=== PATIENT | male | born 1950 | race Caucasian/White ===

== ENCOUNTER → 2018-09-03 10:02 | Outpatient (CLI) | payer MEDICARE, OTHER, SELFPAY ==
[2018-09-03 11:08] LABS: Add Manual Diff / Slide Review NO; Basophils Absolute Auto 100 /uL (0-100); Basophils Percent Auto 0.9 % (0-2); Eosinophils Absolute Auto 200 /uL (0-450); Eosinophils Percent Auto 3.3 % (2-4); Hematocrit 40.7 % (41-53); Hemoglobin 13.7 g/dL (13.5-17.5); Lymphocytes Absolute Auto 1800 /uL (1100-4500); Lymphocytes Percent Auto 27.2 % (25-40); Mean Corpuscular HGB Conc 33.8 % (30-36); Mean Corpuscular Hemoglobin 31.1 PG (26-34); Mean Corpuscular Volume 92.1 fL (80-100); Monocytes Absolute Auto 800 /uL (0-900); Monocytes Percent Auto 11.3 % (3-14); Neutrophils Absolute Auto 3900 /uL (1500-7000); Neutrophils Percent Auto 57.3 % (50-75); Platelet Count 271 X10^3/uL (150-400); Red Blood Cell Count 4.42 X10^6/uL (4.5-5.9); Red Cell Distribution Width 12.2 % (11.6-14.8); White Blood Cell Count 6.8 X10^3/uL (4.5-11.0)
[2018-09-03 11:30] LABS: Alanine Aminotransferase 32 IU/L (21-72); Albumin 4.5 g/dL (3.5-5.0); Albumin Globulin Ratio 1.9 (1.0-2.8); Alkaline Phosphatase 59 U/L (38-126); Aspartate Aminotransferase 33 IU/L (17-59); BUN Creatinine Ratio 22.5 (6-22); Bilirubin Total 1.4 mg/dL (0.2-1.3); Blood Urea Nitrogen 18 mg/dL (9-20); Calcium 9.4 mg/dL (8.4-10.2); Carbon Dioxide 28 mmol/L (22-32); Chloride 98 mmol/L (98-107); Cholesterol 148 mg/dL (140-199); Estimated Glomerular Filt Rate > 60.0 mL/min (>60); Globulin 2.4 g/dL (1.7-4.1); Glucose 104 mg/dL (80-110); HDL Cholesterol 66 mg/dL (40-60); HEMOLYSIS < 15 (0-50); LDL Cholesterol Calculated 66 mg/dL (<100); Potassium 3.9 mmol/L (3.4-5.1); Sodium 136 mmol/L (137-145); Total Protein 6.9 g/dL (6.3-8.2); Triglycerides 78 mg/dL (35-150)
[2018-09-03 11:57] LABS: Prostate Specific Antigen Scrn 0.859 ng/mL (0.1-4.0); TSH w/ Reflex to FT4 1.63 uIU/mL (0.47-4.68)
== END ==
PROVIDERS: PCP Family Medicine; Visit Provider Family Medicine
DX: E78.5 Hyperlipidemia, unspecified (principal); I10 Essential (primary) hypertension; N40.0 Benign prostatic hyperplasia without lower urinary tract symptoms; Z12.5 Encounter for screening for malignant neoplasm of prostate
CPT/HCPCS: 36415; 80053; 80061; 84443; 85025; G0103

== ENCOUNTER → 2019-09-08 09:35 | Outpatient (CLI) | payer MEDICARE, OTHER, SELFPAY ==
[2019-09-08 10:45] LABS: Add Manual Diff / Slide Review NO; Basophils Absolute Auto 100 /uL (0-100); Eosinophils Absolute Auto 200 /uL (0-450); Eosinophils Percent Auto 2.9 % (2-4); Hematocrit 39.5 % (41-53); Hemoglobin 13.7 g/dL (13.5-17.5); Lymphocytes Absolute Auto 1500 /uL (1100-4500); Lymphocytes Percent Auto 27.3 % (25-40); Mean Corpuscular HGB Conc 34.7 % (30-36); Mean Corpuscular Volume 92.1 fL (80-100); Monocytes Absolute Auto 600 /uL (0-900); Monocytes Percent Auto 10.2 % (3-14); Neutrophils Absolute Auto 3300 /uL (1500-7000); Neutrophils Percent Auto 58.6 % (50-75); Platelet Count 269 X10^3/uL (150-400); Red Blood Cell Count 4.29 X10^6/uL (4.5-5.9); Red Cell Distribution Width 12.7 % (11.6-14.8); White Blood Cell Count 5.6 X10^3/uL (4.5-11.0)
[2019-09-08 10:54] LABS: Alanine Aminotransferase 29 IU/L (<50); Albumin 4.9 g/dL (3.5-5.0); Albumin Globulin Ratio 1.8 (1.0-2.8); Alkaline Phosphatase 56 U/L (38-126); Aspartate Aminotransferase 35 IU/L (17-59); BUN Creatinine Ratio 25.3 (6-22); Bilirubin Total 1.2 mg/dL (0.2-1.3); Blood Urea Nitrogen 20 mg/dL (9-20); Calcium 10.2 mg/dL (8.4-10.2); Carbon Dioxide 29 mmol/L (22-32); Chloride 99 mmol/L (98-107); Creatine Kinase 242 U/L (55-170); Estimated Glomerular Filt Rate > 60.0 mL/min (>60); Globulin 2.8 g/dL (1.7-4.1); Glucose 107 mg/dL (80-110); HEMOLYSIS < 15 (0-50); Potassium 4.4 mmol/L (3.4-5.1); Sodium 137 mmol/L (137-145); Total Protein 7.7 g/dL (6.3-8.2)
[2019-09-08 10:56] LABS: C-Reactive Protein Quant < 0.5 mg/dL (<1.0)
[2019-09-08 11:19] LABS: Prostate Specific Antigen 0.587 ng/mL (0.10-4.00)
[2019-09-08 11:21] LABS: TSH w/ Reflex to FT4 1.96 uIU/mL (0.47-4.68)
[2019-09-08 17:12] LABS: Hep C Virus Ab w/Reflex Quant NEGATIVE s/c (NEGATIVE)
== END ==
PROVIDERS: PCP Family Medicine; Referring Provider Family Medicine; Visit Provider Family Medicine
DX: Z11.59 Encounter for screening for other viral diseases (principal); E78.5 Hyperlipidemia, unspecified; E80.4 Gilbert syndrome; I10 Essential (primary) hypertension; N40.0 Benign prostatic hyperplasia without lower urinary tract symptoms
CPT/HCPCS: 36415; 80053; 82550; 84153; 84443; 85025; 86140; 86803

== ENCOUNTER → 2020-09-12 09:34 | Outpatient (CLI) | payer MEDICARE, OTHER, SELFPAY ==
[2020-09-12 10:13] LABS: Add Manual Diff / Slide Review NO; Basophils Absolute Auto 100 /uL (0-100); Basophils Percent Auto 0.9 % (0-2); Eosinophils Absolute Auto 100 /uL (0-450); Eosinophils Percent Auto 2.2 % (2-4); Hematocrit 38.2 % (41-53); Lymphocytes Absolute Auto 1700 /uL (1100-4500); Lymphocytes Percent Auto 26.8 % (25-40); Mean Corpuscular HGB Conc 34.1 % (30-36); Mean Corpuscular Hemoglobin 31.3 PG (26-34); Mean Corpuscular Volume 91.8 fL (80-100); Monocytes Absolute Auto 600 /uL (0-900); Monocytes Percent Auto 9.9 % (3-14); Neutrophils Absolute Auto 3700 /uL (1500-7000); Neutrophils Percent Auto 60.2 % (50-75); Platelet Count 238 X10^3/uL (150-400); Red Blood Cell Count 4.16 X10^6/uL (4.5-5.9); Red Cell Distribution Width 12.5 % (11.6-14.8); White Blood Cell Count 6.2 X10^3/uL (4.5-11.0)
[2020-09-12 10:43] LABS: Alanine Aminotransferase 31 IU/L (<50); Albumin 4.4 g/dL (3.5-5.0); Alkaline Phosphatase 50 U/L (38-126); Aspartate Aminotransferase 31 IU/L (17-59); BUN Creatinine Ratio 28.6 (6-22); Bilirubin Total 1.3 mg/dL (0.2-1.3); Blood Urea Nitrogen 20 mg/dL (9-20); Calcium 9.9 mg/dL (8.4-10.2); Carbon Dioxide 28 mmol/L (22-32); Chloride 100 mmol/L (98-107); Cholesterol 151 mg/dL (140-199); Estimated Glomerular Filt Rate > 60.0 mL/min (>60); Globulin 2.2 g/dL (1.7-4.1); Glucose 112 mg/dL (80-110); HDL Cholesterol 86 mg/dL (40-60); HEMOLYSIS < 15 (0-50); LDL Cholesterol Calculated 52 mg/dL (<100); Potassium 4.1 mmol/L (3.4-5.1); Sodium 135 mmol/L (137-145); Total Protein 6.6 g/dL (6.3-8.2); Triglycerides 65 mg/dL (35-150)
[2020-09-12 16:23] LABS: Prostate Specific Antigen Scrn 0.448 ng/mL (0.1-4.0)
== END ==
PROVIDERS: PCP Family Medicine; Referring Provider Family Medicine; Visit Provider Family Medicine
DX: E78.5 Hyperlipidemia, unspecified (principal); Z12.5 Encounter for screening for malignant neoplasm of prostate; I10 Essential (primary) hypertension; N40.0 Benign prostatic hyperplasia without lower urinary tract symptoms
CPT/HCPCS: 36415; 80053; 80061; 84443; 85025; G0103

== ENCOUNTER → 2021-09-23 10:34 | Outpatient (CLI) | payer MEDICARE, OTHER, SELFPAY ==
[2021-09-23 11:38] LABS: Add Manual Diff / Slide Review NO; Basophils Absolute Auto 0 /uL (0-100); Basophils Percent Auto 0.7 % (0-2); Eosinophils Absolute Auto 200 /uL (0-450); Eosinophils Percent Auto 3.2 % (2-4); Hematocrit 37.1 % (41-53); Hemoglobin 12.9 g/dL (13.5-17.5); Lymphocytes Absolute Auto 1300 /uL (1100-4500); Lymphocytes Percent Auto 23.5 % (25-40); Mean Corpuscular HGB Conc 34.6 % (30-36); Mean Corpuscular Hemoglobin 31.6 PG (26-34); Mean Corpuscular Volume 91.2 fL (80-100); Monocytes Absolute Auto 600 /uL (0-900); Monocytes Percent Auto 10.5 % (3-14); Neutrophils Absolute Auto 3400 /uL (1500-7000); Neutrophils Percent Auto 62.1 % (50-75); Platelet Count 243 X10^3/uL (150-400); Red Blood Cell Count 4.07 X10^6/uL (4.5-5.9); Red Cell Distribution Width 12.5 % (11.6-14.8); White Blood Cell Count 5.5 X10^3/uL (4.5-11.0)
[2021-09-23 12:19] LABS: Alanine Aminotransferase 24 IU/L (<50); Albumin 4.6 g/dL (3.5-5.0); Albumin Globulin Ratio 1.8 (1.0-2.8); Alkaline Phosphatase 59 U/L (38-126); Aspartate Aminotransferase 31 IU/L (17-59); BUN Creatinine Ratio 22.4 (6-22); Bilirubin Total 1.5 mg/dL (0.2-1.3); Blood Urea Nitrogen 19 mg/dL (9-20); Calcium 9.5 mg/dL (8.4-10.2); Carbon Dioxide 29 mmol/L (22-32); Chloride 99 mmol/L (98-107); Cholesterol 139 mg/dL (140-199); Estimated Glomerular Filt Rate > 60 mL/min (>60); Globulin 2.5 g/dL (1.7-4.1); Glucose 107 mg/dL (80-110); HDL Cholesterol 67 mg/dL (40-60); HEMOLYSIS < 15 (0-50); LDL Cholesterol Calculated 59 mg/dL (<100); Potassium 4.1 mmol/L (3.4-5.1); Sodium 134 mmol/L (137-145); Total Protein 7.1 g/dL (6.3-8.2); Triglycerides 66 mg/dL (35-150)
[2021-09-23 12:42] LABS: TSH w/ Reflex to FT4 1.34 uIU/mL (0.47-4.68)
[2021-09-23 13:13] LABS: Vitamin D 25 Hydroxy (D3) 70.6 ng/mL (30.0-100.0)
[2021-09-23 15:44] LABS: HEMOLYSIS < 15 (0-50); Iron 140 ug/dL (49-181)
[2021-09-23 15:54] LABS: Percent Iron Saturation 45 % (20-50); Total Iron Binding Capacity 309 ug/dL (261-462); Transferrin 216 mg/dL (206-381)
[2021-09-23 16:20] LABS: Ferritin 125 ng/mL (18-464)
[2021-09-23 16:51] LABS: Folate > 20.0 ng/mL (2.76-20.0); Vitamin B12 813 pg/mL (239-931)
== END ==
PROVIDERS: PCP Family Medicine; Referring Provider Family Medicine; Visit Provider Family Medicine
DX: E78.5 Hyperlipidemia, unspecified (principal); R73.01 Impaired fasting glucose; D64.9 Anemia, unspecified; I10 Essential (primary) hypertension; N40.0 Benign prostatic hyperplasia without lower urinary tract symptoms
CPT/HCPCS: 36415; 80053; 80061; 82306; 82607; 82728; 82746; 83540; 83550; 84443; 85025

== ENCOUNTER 2021-12-03 19:25 | Emergency (ER) | payer MEDICARE, OTHER, SELFPAY ==
[2021-12-03 19:30] VITALS: BP 149/68; PULSE 65; RESP 20; TEMP 36.3; O2SAT 100
--- NOTE | 2021-12-03 19:57 | ED_ITS ---
HPI - Wound/Laceration General Chief Complaint: Wound/Laceration Stated Complaint: head injury s/p fall Time Seen by Provider: 12/03/21 19:32 Source: patient Mode of arrival: Ambulatory History of Present Illness HPI narrative: 71-year-old male nonsmoker with history of hypertension and hyperlipidemia presents at the request of the walk-in clinic for evaluation of a head laceration suffered just prior to arrival. He states he was a few steps up on a ladder when he lost his balance and started to fall forward and struck his head on an object in his workspace. He has full recall of the event denies any loss of consciousness, nausea, vomiting or other neurologic symptoms such as blurred vision, trouble speech or trouble with gait. He was seen at the walk-in clinic initially and had his tetanus updated but given the time of day and the complexity of the repair he was diverted to the emergency department for definitive care. He does not take blood thinners and denies other injury. Related Data Previous Rx's Medication Instructions Recorded amlodipine 5 mg tablet (Norvasc) 5 mg PO BID #180 tabs 09/26/21 atorvastatin 40 mg tablet (Lipitor) 40 mg PO HS #90 tabs 09/26/21 hydrochlorothiazide 50 mg tablet 50 mg PO BID #180 tabs 09/26/21 lisinopril 20 mg tablet 20 mg PO BID #180 tabs 09/26/21 tamsulosin 0.4 mg capsule (Flomax) 0.4 mg PO DAILY #90 caps 09/26/21 Allergies Allergy/AdvReac Type Severity Reaction Status Date / Time No Known Drug Allergies Allergy Verified 12/03/21 18:41 Review of Systems Review of Systems Narrative: GENERAL: Denies chills, fatigue, malaise, fever, sweats. HEENT: Denies sinus pain, ear pain, sore throat, difficulty swallowing, dizziness. RESPIRATORY: Denies dyspnea, cough, wheezing, hemoptysis, sputum. CARDIOVASCULAR: Denies chest pain, palpitations, orthopnea, edema, GASTROINTESTINAL: Denies nausea, vomiting, abdominal pain, diarrhea, constipation, melena. : Denies dysuria, frequency, incontinence, hematuria, urinary retention. MUSCULOSKELETAL: denies weakness, joint pain, or bony pain SKIN: See HPI NEUROLOGIC: Denies weakness, headache, numbness, change in speech, confusion, seizures, incoordination. PSYCHIATRIC: No concerning psychosocial issues. 12 point review of systems is negative except for those stated above Patient History Medical History Abnormal chest x-ray (~1987) Chicken pox Hyperlipidemia Hypertension Sarcoidosis (~1987) Shoulder pain Vision disorder Surgical History Anesthesia Status post biopsy Family History Father Heart disease Hypertension Stroke Mother Cancer Diabetes mellitus Dementia Social History marital status: household members: spouse lives independently: Yes pets and animals: Yes (Dog) education level: other occupational status: employed [employer]: [employer] seatbelt use: always helmet use: Yes water heater temp set < 120 deg: Yes working smoke detector in home: Yes fire extinguisher in home: Yes carbon monox detector in home: Yes Smoking Status: Never smoker alcohol intake: current substance use type: does not use well-balanced diet: daily or most days daily servings fruits/ve-4 caffeine: Yes (1-3 caffeine drinks per week) eating out: 1-3 times/week frequency: 1-2 times per week duration: 15-30 minutes/day Smoking Status: Never smoker alcohol intake frequency: 0-2 drinks per day Exam Narrative Exam Narrative: GENERAL: [71] year old patient appears stated age. Well-developed patient, in mild distress. GCS 15 HEAD: 7cm deep, vertically oriented laceration extending from the eyebrow vertically on left side of forehead. There is minimal active bleeding, some of the frontalis muscle appears to be involved. It is clean and no foreign body is noted, no defect in the calvarium is noted EYES: Pupils equal round and reactive. No hyphema Extraocular motions intact. No scleral icterus. No injection or drainage. ENT: Nose without bleeding, purulent drainage. No nasal septal hematoma Throat without erythema, tonsillar hypertrophy or exudate. Airway patent. NECK: Trachea midline. Non tender CARDIOVASCULAR: Regular rate and rhythm without murmurs, gallops, or rubs. RESPIRATORY: Clear to auscultation. Breath sounds equal bilaterally. No wheezes, rales, or rhonchi. GASTROINTESTINAL: Abdomen soft, non-tender, nondistended. EXTREMITIES: No edema or joint tenderness. BACK: Nontender without deformity or crepitance. No flank tenderness. NEURO: AOx3. SKIN: No rash or erythema of visible areas Initial Vital Signs Initial Vital Signs: Vital Signs Temperature 97.3 F L 12/03/21 19:30 Pulse Rate 65 12/03/21 19:30 Respiratory Rate 20 12/03/21 19:30 Blood Pressure 149/68 H 12/03/21 19:30 Pulse Oximetry 100 12/03/21 19:30 Oxygen Delivery Method 12/03/21 19:30 Procedures Laceration Repair Laceration 1: Site: face Side (If applicable): left Size (cm): 7 Description: linear, irregular and clean Depth: involves muscle layer Local Anesthetic: lidocaine 1% and with epi Amount of anesthesia used (mL): 3 Pre-repair: wound explored and cleansed with chlorhexadine Skin layer closed with: nylon Skin layer suture size: 6-0 Number of sutures: 8 Technique: simple, interrupted Subcutaneous layer closed with: vicryl Subcutaneous layer suture size: 5-0 Number of sutures: 3 Technique: simple, interrupted Course Orders Ordered: Discontinued Medications Lidocaine/Epinephrine (Lidocaine 1% W/Epi) 1 ml SUBCUT NOW ONE Stop: 12/03/21 20:06 Last Admin: 12/03/21 20:29 Dose: 1 ml Documented By: CTS Vital Signs Vital signs: Vital Signs - 8 hr 12/03/21 19:30 Temperature 97.3 F L Pulse Rate 65 Respiratory Rate 20 Blood Pressure 149/68 H Pulse Oximetry 100 Oxygen Delivery Method Room Air Discharge Plan Departure Patient Disposition: Home Clinical Impression: Complex laceration of face Instructions: DI for Laceration Repair Activity Restrictions/Additional Instructions: *You have been diagnosed with [deep facial laceration ] *What to do: *Please continue to take your regular medications as directed. * Please keep the wound clean and dry to the best of your ability. Please monitor for signs of infection such as redness to the skin or increasing pain. Have the sutures/flavia removed by your doctor in about 7 days. If you are unable to get into your doctor, we would be happy to remove the sutures/flavia in that same timeframe. *If you do not have a primary care provider please contact the [facility] Resource line at [phone]. They will ask some questions about your medical h istory and help get you set up with a doctor in the community. *Return to Emergency Department if you should have any new, worsening or concerning symptoms, such as [fever greater than 101 F, shaking chills, worsening pain, persistent vomiting or other bothersome symptoms] Prescriptions: No Action amlodipine [Norvasc] 5 mg tablet 5 mg PO BID Qty: 180 3RF atorvastatin [Lipitor] 40 mg tablet 40 mg PO HS Qty: 90 3RF hydrochlorothiazide 50 mg tablet 50 mg PO BID Qty: 180 3RF lisinopril 20 mg tablet 20 mg PO BID Qty: 180 3RF tamsulosin [Flomax] 0.4 mg capsule 0.4 mg PO DAILY Qty: 90 3RF Rx Instructions: administer 30 minutes after same meal each day; swallow whole with liquid; do not crush/chew/dissolve/open Referrals: Bird Fitzpatrick MD [Primary Care Provider] - Visit Report Forms: Patient Portal/API
[2021-12-03] MEDS: LIDOCAINE 1% W/EPI 1 ML SUBCUT (20:29)
== END 2021-12-03 20:42 | disposition home or self-care (01) ==
PROVIDERS: Emergency Provider Emergency Medicine; PCP Family Medicine
DX: S01.81XA Laceration without foreign body of other part of head, initial encounter (principal); W19.XXXA Unspecified fall, initial encounter
CPT/HCPCS: 13132; 99281; 99283

== ENCOUNTER → 2022-06-19 08:38 | Outpatient (CLI) | payer MEDICARE, OTHER, SELFPAY ==
--- NOTE | 2022-06-19 08:44 | DI.MRI.S_ITS ---
PROCEDURE: MR ANKLE LT WO CON INDICATIONS: Left ankle deformity and pain TECHNIQUE: Noncontrast sagittal T1 spin echo and T2 fast spin echo with fat saturation, axial proton density fast spin echo and T2 fast spin echo with fat saturation, coronal T1 spin echo and T2 fast spin echo with fat saturation through the ankle/hindfoot. COMPARISON: None. FINDINGS: Image quality: Excellent. Bones and joints: Mild ankle soft tissue swelling and edema is seen. Moderate midfoot and hindfoot joint osteoarthritic changes are noted with joint space narrowing, subchondral sclerosis and small marginal osteophyte formation most notably involving subtalar joint and talonavicular joint. No osteochondral injuries of talar dome. Small tibiotalar and subtalar joint effusion is seen, no gross loose bodies. Medial structures: The posterior tibialis is markedly thickened with intrasubstance T2 hyperintense signal at the level of mid to distal talus and talonavicular joint. The flexor digitorum longus, and flexor hallucis longus tendons are intact. Small amount of fluid distending flexor tendon sheath is seen. The posterior tibial neurovascular bundle appears normal within the tarsal tunnel, without extrinsic mass effect. The deltoid ligament and spring ligament are thickened. Lateral structures: The anterior talofibular, calcaneofibular, and posterior talofibular ligaments appear mildly thickened with intrasubstance T2 hyperintense signal.. More superiorly, the anterior and posterior tibiofibular ligaments appear intact, as is the intermalleolar ligament. The tibiofibular syndesmosis is normal in width at 2 mm or less. The peroneus longus and brevis tendons demonstrate normal location and morphology. Adjacent bony peroneal tubercle and retrotrochlear prominence are normal in size. The sinus tarsi demonstrates normal fatty signal, without edema, fibrosis, or cyst formation. Visualized sinus tarsi components (cervical ligament, interosseous talocalcaneal ligament, roots of the inferior extensor retinaculum) appear normal. The calcaneonavicular and calcaneocuboid components of the bifurcate ligament appear intact. The dorsal calcaneocuboid ligament appears intact. Anterior structures: The tibialis anterior, extensor hallucis longus, and extensor digitorum longus tendons appear intact. The dorsal talonavicular ligament appears intact. Posterior and plantar structures: Achilles tendon is intact. Medial and lateral bands of the plantar fascia are of normal thickness. No abductor digiti quinti muscle atrophy to suggest Weir neuropathy. IMPRESSION: 1. Moderate midfoot and hindfoot joint osteoarthritis. No fracture or dislocation. No osteochondral injuries of talar dome. Small amount of joint effusion, no gross loose bodies. Diffuse ankle soft tissue edema and swelling. 2. Tendinosis and moderate grade intrasubstance partial-thickness tear involving posterior tibialis tendon at the level of mid to distal talus extending to talonavicular joint. Low-grade tenosynovitis also seen involving flexor tendons. 3. Low to moderate grade medial ankle ligament sprain. Low-grade sprain involving anterior and posterior talofibular ligaments and calcaneofibular ligament. Dictated by: Daniel Pena M.D. on 06/19/2022 at 16:05 Approved by: Daniel Pena M.D. on 06/19/2022 at 16:10
--- NOTE | 2022-06-19 08:44 | DI.RAD.S_ITS ---
PROCEDURE: XR ANKLE LT MIN 3V INDICATIONS: Left ankle deformity and pain TECHNIQUE: 3 views of the ankle were acquired. COMPARISON: [facility], MR, MR ANKLE LT WO CON, 06/19/2022, 9:09. FINDINGS: Bones: No fractures identified. No dislocations. [id number] degenerative change in the midfoot. Ankle mortise is normally aligned. No suspicious bony lesions. Soft tissues: No tibiotalar joint effusion. Achilles tendon appears normal. IMPRESSION: No fracture is identified. Please see separately dictated same day MRI. Dictated by: Roman Oropeza M.D. on 06/19/2022 at 13:27 Approved by: Roman Oropeza M.D. on 06/19/2022 at 13:30
[2022-06-20 14:21] LABS: Fecal Immunochemical Test Negative (Negative)
== END ==
PROVIDERS: PCP Family Medicine; Referring Provider Physician Assistant; Visit Provider Physician Assistant
DX: S93.492A Sprain of other ligament of left ankle, initial encounter (principal); S93.412A Sprain of calcaneofibular ligament of left ankle, initial encounter; S96.812A Strain of other specified muscles and tendons at ankle and foot level, left foot, initial encounter; M19.072 Primary osteoarthritis, left ankle and foot; M65.872 Other synovitis and tenosynovitis, left ankle and foot; M25.572 Pain in left ankle and joints of left foot; M21.962 Unspecified acquired deformity of left lower leg; R26.9 Unspecified abnormalities of gait and mobility; G89.29 Other chronic pain; Z12.11 Encounter for screening for malignant neoplasm of colon
CPT/HCPCS: 73610; 73721; 82274

== ENCOUNTER → 2022-09-25 09:11 | Outpatient (CLI) | payer MEDICARE, OTHER, SELFPAY ==
[2022-09-25 10:20] LABS: HEMOLYSIS < 15 (0-50); Iron 139 ug/dL (49-181)
[2022-09-25 10:22] LABS: Alanine Aminotransferase 23 IU/L (<50); Albumin 4.3 g/dL (3.5-5.0); Albumin Globulin Ratio 1.7 (1.0-2.8); Alkaline Phosphatase 49 U/L (38-126); Aspartate Aminotransferase 22 IU/L (17-59); BUN Creatinine Ratio 24.4 (6-22); Bilirubin Total 1.2 mg/dL (0.2-1.3); Blood Urea Nitrogen 19 mg/dL (9-20); Calcium 9.4 mg/dL (8.4-10.2); Carbon Dioxide 30 mmol/L (22-32); Chloride 99 mmol/L (98-107); Cholesterol 154 mg/dL (140-199); Estimated Glomerular Filt Rate > 60 mL/min (>60); Globulin 2.6 g/dL (1.7-4.1); Glucose 113 mg/dL (80-110); HDL Cholesterol 64 mg/dL (40-60); HEMOLYSIS < 15 (0-50); LDL Cholesterol Calculated 79 mg/dL (<100); Potassium 4.3 mmol/L (3.4-5.1); Sodium 136 mmol/L (137-145); Total Protein 6.9 g/dL (6.3-8.2); Triglycerides 56 mg/dL (35-150)
[2022-09-25 10:33] LABS: Percent Iron Saturation 48 % (20-50); Total Iron Binding Capacity 292 ug/dL (261-462); Transferrin 215 mg/dL (206-381)
[2022-09-25 10:52] LABS: Prostate Specific Antigen Scrn 0.512 ng/mL (0.1-4.0)
[2022-09-25 10:54] LABS: TSH w/ Reflex to FT4 1.57 uIU/mL (0.47-4.68)
[2022-09-25 10:56] LABS: Ferritin 140 ng/mL (18-464); Testosterone 360 ng/dL (71.8-623)
[2022-09-25 11:28] LABS: Folate 13.7 ng/mL (2.76-20.0); Vitamin B12 695 pg/mL (239-931)
== END ==
PROVIDERS: PCP Family Medicine; Referring Provider Family Medicine; Visit Provider Family Medicine
DX: D64.9 Anemia, unspecified (principal); E78.5 Hyperlipidemia, unspecified; Z12.5 Encounter for screening for malignant neoplasm of prostate; I10 Essential (primary) hypertension; N40.0 Benign prostatic hyperplasia without lower urinary tract symptoms; R53.83 Other fatigue
CPT/HCPCS: 36415; 80053; 80061; 82607; 82728; 82746; 83540; 83550; 84403; 84443; G0103

== ENCOUNTER → 2022-10-07 08:19 | Outpatient (CLI) | payer MEDICARE, OTHER, SELFPAY ==
--- NOTE | 2022-10-07 08:20 | DI.MRI.S_ITS ---
PROCEDURE: MR HEAD/BRAIN WO/W CON INDICATIONS: Parkinsonian features TECHNIQUE: Noncontrast axial T1 spin echo, axial T2 fast spin echo, sagittal and axial FLAIR, coronal T2 fast spin echo, axial gradient echo, axial diffusion and ADC through the brain. After the administration of contrast, axial and coronal and sagittal T1 spin echo with fat saturation through the brain. COMPARISON: None. FINDINGS: Image quality: Excellent. CSF spaces: Basal cisterns are patent. No extra-axial fluid collections. Ventricles are normal in size and shape. Brain: No midline shift. No intracranial bleeds or masses. No abnormal intracranial enhancement. There is cerebral volume loss for age. There is periventricular white matter chronic small vessel ischemic change. The brainstem appears normal. Diffusion-weighted images demonstrate no acute ischemic insults. No chronic ischemic insults. Normal intravascular flow voids are present. Skull and face: Calvarial marrow is normal in signal. Orbits appear normal. Sinuses: Minimal mucosal thickening is seen within the paranasal sinuses. No abnormal fluid is seen within the mastoid air cells. IMPRESSION: Brain MRI within normal limits for age, with note made of brain parenchymal volume loss and chronic small vessel ischemic change. No masses or abnormal enhancement can be seen. Dictated by: Chito Booth M.D. on 10/07/2022 at 14:00 Approved by: Chito Booth M.D. on 10/07/2022 at 14:01
[2022-10-07 09:54] LABS: Add Manual Diff / Slide Review NO; Basophils Absolute Auto 0 /uL (0-100); Basophils Percent Auto 0.6 % (0-2); Eosinophils Absolute Auto 300 /uL (0-450); Eosinophils Percent Auto 3.8 % (2-4); Hematocrit 36.2 % (41-53); Hemoglobin 12.2 g/dL (13.5-17.5); Lymphocytes Absolute Auto 2000 /uL (1100-4500); Lymphocytes Percent Auto 25.4 % (25-40); Mean Corpuscular HGB Conc 33.7 % (30-36); Mean Corpuscular Volume 92.1 fL (80-100); Monocytes Absolute Auto 700 /uL (0-900); Monocytes Percent Auto 8.8 % (3-14); Neutrophils Absolute Auto 4800 /uL (1500-7000); Neutrophils Percent Auto 61.4 % (50-75); Platelet Count 272 X10^3/uL (150-400); Red Blood Cell Count 3.93 X10^6/uL (4.5-5.9); Red Cell Distribution Width 12.9 % (11.6-14.8); White Blood Cell Count 7.8 X10^3/uL (4.5-11.0)
[2022-10-08 05:44] LABS: x Labcorp Estim. Avg Glu (eAG) 120 mg/dL (.); x Labcorp Hemoglobin A1c 5.8 % (4.8-5.6)
== END ==
PROVIDERS: PCP Family Medicine; Referring Provider Family Medicine; Visit Provider Family Medicine
DX: R25.1 Tremor, unspecified (principal); R25.9 Unspecified abnormal involuntary movements; I10 Essential (primary) hypertension; R53.83 Other fatigue; E78.5 Hyperlipidemia, unspecified; N40.0 Benign prostatic hyperplasia without lower urinary tract symptoms; R73.01 Impaired fasting glucose; D64.9 Anemia, unspecified
CPT/HCPCS: 36415; 70553; 83036; 85025; A9579

== ENCOUNTER 2023-01-23 06:13 | Day surgery (SDC) | payer MEDICARE, OTHER, SELFPAY ==
[2023-01-20 15:57] VITALS: BMI 26.3
[2023-01-23] VITALS (9 sets, daily range): BP systolic 105–143; BP diastolic 34–65; PULSE 56–78; RESP 13–19; TEMP 36.4–36.8; O2SAT 94–99; BMI 26.3
--- NOTE | 2023-01-23 | DI.RAD.S_ITS ---
PROCEDURE: XR FOOT LT 2V INDICATIONS: OR TECHNIQUE: 2 views of the foot were acquired. COMPARISON: None. FINDINGS: Fluoroscopic guidance utilized midfoot and hindfoot arthrodesis. Anatomic alignment is present. IMPRESSION: Fluoroscopic guidance utilized for midfoot and hindfoot arthrodesis. Dictated by: Tommy Thomas M.D. on 01/23/2023 at 16:25 Approved by: Tommy Thomas M.D. on 01/23/2023 at 16:25
[2023-01-23] MEDS: LACTATED RINGERS 1,000 ML 42 ML IV (07:19)
[2023-01-23] MEDS: CEFAZOLIN 2 GM/100 ML PREMIX 100 ML IV (07:55)
[2023-01-23] MEDS: BUPIVACAINE 0.25% (PF) 30 ML, EPINEPHrine 0.15 MG INJ (10:51)
--- NOTE | 2023-01-23 11:20 | P.OP_ITS ---
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 He has plantar navicular and lateral sinus tarsi pain. Pes planovalgus deformity. He is indicated for a hindfoot fusion with subtalar fusion talonavicular fusion and may require additional 1st TMT fusion to restore a plantar grade foot and tendo- Achilles lengthening. The risks and benefits of the procedure have been discussed with the patient and given the opportunity to ask questions. The risks of surgery include but are not limited to infection, malunion, nonunion, persistence of pain, damage to nerves and blood vessels, posttraumatic arthritis, DVT, PE, cardiopulmonary complications and . The patient expressed a thorough understanding of the risks and benefits of surgery and has elected to proceed. Consent was signed. Surgeon: Pallavi Rivera Recruiter Specialist: Amilcar Palumbo Anesthesia Type: General and Local Operative Notes Findings: Rigid pes planovalgus deformity, Achilles contracture. Closure Type: primary Specimen(s): none sent Prosthetic devices, grafts, tissues, transplants, or devices: [id number] 7.0 headless monster screws x2 for subtalar fusion [id number] 5.5 headless screw talonavicular joint [id number] 18 x 18 x 18 mm great White Nitinol staple talonavicular joint [id number] 4.0 solid fully-threaded screws x2, 1st TMT fusion Estimated Blood Loss (mL): 30 Blood products transfused: none Tourniquet time (min): 120 Procedure in detail: Patient was seen in the preoperative area the site of surgery marked informed consent confirmed. The patient was brought back to the operating room and positioned on the operative table. The left lower extremity was prepped and draped in standard sterile fashion. All bony prominences were well padded. A well-padded thigh tourniquet had been placed non sterilely prior to prepping. Formal time-out procedure was performed confirming the patient's side and site of surgery administration of appropriate preoperative antibiotic. All were in agreement. Tendo-Achilles lengthening: Ankle had a fixed contracture that did not improve with knee flexion and was indicated for a tendo-Achilles lengthening. A triple Reeves style incision was then completed through small incisions with the distal and proximal directed vivek sections and the middle medial directed vivek section under a dorsiflexion with an audible and palpable stretch and excellent improved range of motion. Subtalar and talonavicular fusions. Incision was made from the tip of the calcaneus to the base of the 4th metatarsal. Dissection was taken down through the skin subcutaneous tissue. The extensor digitorum brevis was released proximally and suppressive dissection was then performed along the lateral border of the calcaneus and talus visualized in the posterior facet, sinus tarsi and distally to the calcaneocuboid joint. Once the subperiosteal dissection was completed we removed all was left of the articular surface on the subchondral bone and posterior and anterior facets of the subtalar joint. The calcaneocuboid joint was maintained. Cartilage was removed from the lateral aspect of the talonavicular joint. The power rasp was used. Got down to good cancellous bone surfaces that were bleeding. These were then fish-scaled and drilled. I also made an incision over the anterior medial aspect of the talonavicular joint. We took care not to injure the tibialis anterior tendon. Dissected through the subcutaneous tissue all the way down to the talonavicular joint. Then subperiosteal dissected the talonavicular joint. Osteophytes were removed. The talonavicular joint was then distracted. I removed what was left of the articular surface down to the subchondral bone. This maintained contour of the talonavicular joint we denuded down to cancellous bone bleeding on either side and drilled and fish-scaled these. The 3 cc of augment injectable recumbent platelet derived growth factor bone graft was then injected into the subtalar joint and talonavicular joint. And carefully Placed in the joint surfaces. We then reduced the subtalar joint anatomically and confirmed this both clinically and radiographically. This was provisionally fixed in place with pins and then we provisionally pinned in place the talonavicular joint. Once the joints were all reduced these were checked on radiographs and the foot was in a nice plantigrade position. We then placed 2 percutaneous screws from the posterior and superior aspect of the calcaneus into the talus. These were 7.0 monster screws from [id number]. And for fixation of the talonavicular joint we placed a 5.5 cannulated screw from the [id number] and a staple. This securely fixed the hindfoot joints restoring alignment. First TMT fusion There was some residual supination due to the significant deformity and decision was made for a 1st TMT fusion to restore a plantar grade foot. Dorsal medial incision was extended over the 1st TMT joint with suppressive dissection into the 1st metatarsal joint. Osteotomes and curette were used to remove the cartilage from the 1st TMT joint and in the same fashion this was then prepped with the power rasp and then the prep drill. The joint was then reduced and pinned and checked on fluoroscopy. Next 4.0 screws, solid were placed in lag technique to compress and fix the 1st TMT joint solidly. This was confirmed under AP lateral and oblique fluoroscopic imaging. Additional augments graft was packed into the sinus tarsi. The ankle joint was not violated. Once we were completely satisfied with the result the wound was irrigated and closed in layers with 2-0 Vicryl 4-0 Monocryl and 3-0 and 4-0 nylon. Sterile bulky dressing and cotton was placed in a posterior and U splint were applied. The patient was then transported to the recovery room in good condition. There no immediate complications from this procedure. All counts were correct. Complications: none Post-operative Condition: stable Disposition: PACU Plan for aftercare: Nonweightbearing 8-10 weeks.--elevate above the heart level. Aspirin for DVT prophylaxis. Follow up in 2-3 weeks for wound check. At that time will likely be placed into a cast.
--- NOTE | 2023-01-23 11:20 | PM.PREOP ---
Pre-operative Note Interval Note History & Physical reviewed/Exam performed by Physician: Yes Changes to H&P: No
[2023-01-23] MEDS: OXYCODONE IR 5 MG TABLET PO (11:27)
== END 2023-01-23 12:30 | disposition home or self-care (01) ==
PROVIDERS: PCP Family Medicine; Referring Provider Orthopaedic Surgery Foot and Ankle Surgery; Visit Provider Orthopaedic Surgery Foot and Ankle Surgery
PROC: (CPT 28735; principal; 2023-01-23 07:45)
PROC: (CPT 27685; 2023-01-23 07:45)
DX: M76.822 Posterior tibial tendinitis, left leg (principal); M62.89 Other specified disorders of muscle; M19.072 Primary osteoarthritis, left ankle and foot; M24.572 Contracture, left ankle; M21.42 Flat foot [pes planus] (acquired), left foot; I10 Essential (primary) hypertension
CPT/HCPCS: 28715; 28740; 27606; 73620; 76000; J0171; J0690; J1100; J1885; J2405; J2704; J3010

== ENCOUNTER → 2023-07-07 16:07 | Outpatient (CLI) | payer MEDICARE, OTHER, SELFPAY ==
[2023-07-07 16:50] LABS: Add Manual Diff / Slide Review NO; Basophils Absolute Auto 100 /uL (0-100); Basophils Percent Auto 0.8 % (0-2); Eosinophils Absolute Auto 100 /uL (0-450); Eosinophils Percent Auto 1.7 % (2-4); Hematocrit 40.4 % (41-53); Hemoglobin 13.6 g/dL (13.5-17.5); Lymphocytes Absolute Auto 1800 /uL (1100-4500); Mean Corpuscular HGB Conc 33.7 % (30-36); Mean Corpuscular Hemoglobin 30.5 PG (26-34); Mean Corpuscular Volume 90.3 fL (80-100); Monocytes Absolute Auto 700 /uL (0-900); Neutrophils Absolute Auto 5800 /uL (1500-7000); Neutrophils Percent Auto 68.5 % (50-75); Platelet Count 247 X10^3/uL (150-400); Red Blood Cell Count 4.47 X10^6/uL (4.5-5.9); Red Cell Distribution Width 13.1 % (11.6-14.8); White Blood Cell Count 8.5 X10^3/uL (4.5-11.0)
[2023-07-07 17:04] LABS: BUN Creatinine Ratio 27.1 (6-22); Blood Urea Nitrogen 19 mg/dL (9-20); C-Reactive Protein Quant 0.6 mg/dL (<1.0); Calcium 9.4 mg/dL (8.4-10.2); Carbon Dioxide 28 mmol/L (22-32); Chloride 107 mmol/L (98-107); Estimated Glomerular Filt Rate > 60 mL/min (>60); Glucose 96 mg/dL (80-110); HEMOLYSIS < 15 (0-50); Potassium 4.2 mmol/L (3.4-5.1); Sodium 139 mmol/L (137-145)
[2023-07-07 17:30] LABS: Erythrocyte Sedimentation Rate 6 MM/HR (0-15)
[2023-07-07 18:28] LABS: Vitamin D 25 Hydroxy (D3) 51.7 ng/mL (30.0-100.0)
== END ==
PROVIDERS: PCP Family Medicine; Referring Provider Orthopaedic Surgery Foot and Ankle Surgery; Visit Provider Orthopaedic Surgery Foot and Ankle Surgery
DX: M79.672 Pain in left foot (principal)
CPT/HCPCS: 36415; 80048; 82306; 85025; 85651; 86140

== ENCOUNTER → 2023-07-15 11:00 | Outpatient (CLI) | payer MEDICARE, OTHER, SELFPAY ==
--- NOTE | 2023-07-15 11:02 | DI.CT.S_ITS ---
PROCEDURE: CT LE LT WO CON INDICATIONS: Broken hardware left foot,nonunion TECHNIQUE: Noncontrast 1-1.5 mm axial sections acquired from above the tibiotalar joint to the bottom of the calcaneus, with coronal and sagittal reformats. COMPARISON: [facility], CR, XR FOOT 3 VIEWS WEIGHT BEARING LEFT, 04/14/2023, 13:39. [facility], CR, XR FOOT 3 VIEWS WEIGHT BEARING LEFT, 07/07/2023, 15:23. FINDINGS: Image quality: Diagnostic. Beam hardening artifacts from surgical hardware are seen. Bones: Extensive postsurgical changes are noted in midfoot and hindfoot with fusion of 1st TMT joint, talonavicular joint and subtalar joint. No evidence of hardware loosening or failure is seen. Osteoarthritic changes are noted throughout left foot. There is partial bony union involving posterior facet of subtalar joint. Small amount of bony union is noted at the 1st TMT joint and talonavicular joint adjacent to the surgical hardware. No acute fracture or dislocation. No suspicious bony lesions. Soft tissues: There is no abnormal soft tissue calcifications. No discrete soft tissue mass or drainable fluid collection. Mild soft tissue edema and swelling over anterior aspect of distal lower leg along dorsal aspect of left foot is seen. No full-thickness tendon rupture is seen. IMPRESSION: 1. Postsurgical changes in midfoot and hindfoot as described above. No evidence of hardware loosening or failure is seen on this study. 2. Partial bony union involving posterior facet of subtalar joint. Minimal amount of bony union is seen at 1st TMT joint and talonavicular joint immediately surrounding the fixation hardware. 3. Osteoarthritic changes throughout left foot. No acute fracture or dislocation. No suspicious bony lesions. 4. Mild soft tissue swelling around distal lower leg extending to dorsal aspect of left foot. No discrete drainable fluid collection. No abnormal soft tissue calcifications. Dictated by: Daniel Pena M.D. on 07/15/2023 at 13:25 Approved by: Daniel Pena M.D. on 07/15/2023 at 15:54
== END ==
LOC: CT 11:01
PROVIDERS: PCP Family Medicine; Referring Provider Orthopaedic Surgery Foot and Ankle Surgery; Visit Provider Orthopaedic Surgery Foot and Ankle Surgery
DX: M79.672 Pain in left foot (principal); Z98.890 Other specified postprocedural states
CPT/HCPCS: 73700

== ENCOUNTER → 2023-10-01 09:55 | Outpatient (CLI) | payer MEDICARE, OTHER, SELFPAY ==
[2023-10-01 11:31] LABS: Cholesterol 234 mg/dL (140-199); HDL Cholesterol 74 mg/dL (40-60); LDL Cholesterol Calculated 138 mg/dL (<100); Triglycerides 109 mg/dL (35-150)
[2023-10-01 11:57] LABS: Prostate Specific Antigen 0.767 ng/mL (0.10-4.00)
[2023-10-01 11:59] LABS: TSH w/ Reflex to FT4 1.52 uIU/mL (0.47-4.68)
== END ==
PROVIDERS: PCP Family Medicine; Referring Provider Family Medicine; Visit Provider Family Medicine
DX: I10 Essential (primary) hypertension (principal); G20.A1 Parkinson's disease without dyskinesia, without mention of fluctuations; E78.5 Hyperlipidemia, unspecified
CPT/HCPCS: 36415; 80061; 84153; 84443

== ENCOUNTER → 2023-12-04 10:20 | Outpatient (CLI) | payer MEDICARE, OTHER, SELFPAY ==
[2023-12-08 08:36] LABS: Fecal Immunochemical Test Negative (Negative)
== END ==
PROVIDERS: PCP Family Medicine; Referring Provider Family Medicine; Visit Provider Family Medicine
DX: Z12.11 Encounter for screening for malignant neoplasm of colon (principal)
CPT/HCPCS: 82274

== ENCOUNTER 2024-08-02 14:52 | Emergency (ER) | payer MEDICARE, OTHER, SELFPAY ==
[2024-08-02] VITALS (7 sets, daily range): BP systolic 175–199; BP diastolic 71–87; PULSE 60–66; RESP 20; TEMP 36.2–36.6; O2SAT 97–100; BMI 25.0
--- NOTE | 2024-08-02 15:05 | EKG_ITS ---
[address] [address] Test Date: 2024-08-02 Pat Name: Matthew Moses Department: Room: Gender: Male [place] Sorter: IRMA : 1950 Requested By: Order Number: [id number] Reading MD: Galo Huston Measurements Intervals [place] Rate: 64 P: 74 [place]: 142 QRS: 12 QRSD: 84 T: 46 QT: 406 QTc: 418 Interpretive Statements Normal sinus rhythm Electronically Signed On 08-03-2024 18:42:42 PDT by Galo Huston
--- NOTE | 2024-08-02 15:15 | DI.CT.S_ITS ---
PROCEDURE: CT CERVICAL SPINE WO CON INDICATIONS: glf, neck pain TECHNIQUE: Noncontrast 3 mm thick sections acquired from the skull base to the T4 level. Sagittal and coronal reformats were then constructed. For radiation dose reduction, the following was used: automated exposure control, adjustment of mA and/or kV according to patient size. COMPARISON: None. FINDINGS: Image quality: Excellent. Bones: No fractures or dislocations. Visualized superior ribs are intact. Soft tissues: Prevertebral soft tissues are normal in thickness. No paravertebral hematomas. No apical pneumothoraces. IMPRESSION: No displaced fracture or traumatic subluxation. Dictated by: Tommy Thomas M.D. on 08/02/2024 at 15:48 Approved by: Tommy Thomas M.D. on 08/02/2024 at 15:50
--- NOTE | 2024-08-02 15:16 | DI.CT.S_ITS ---
PROCEDURE: CT HEAD/BRAIN WO CON INDICATIONS: glf, hit head TECHNIQUE: Noncontrast 4.5 mm thick angled axial sections acquired from the foramen magnum to the vertex, with coronal and sagittal reformats. For radiation dose reduction, the following was used: automated exposure control, adjustment of mA and/or kV according to patient size. COMPARISON: None. FINDINGS: Image quality: Diagnostic. CSF spaces: Basal cisterns are patent. No extra-axial fluid collections. The ventricles are symmetric in size and shape. Brain: No intracranial bleeds or masses. There is cerebral volume loss for age, with resultant ventricular and sulcal prominence. There are periventricular and deep white matter chronic small vessel ischemic changes. There is intracranial internal carotid artery atherosclerosis. Skull and face: Calvarium and visualized facial bones appear intact, without suspicious lesions. Sinuses: Visualized sinuses and mastoids are clear. IMPRESSION: No acute intracranial pathology. Dictated by: Tommy Thomas M.D. on 08/02/2024 at 15:51 Approved by: Tommy Thomas M.D. on 08/02/2024 at 15:52
--- NOTE | 2024-08-02 15:39 | ED.FALL ---
HPI - Fall General Chief Complaint: Fall Stated Complaint: GLF hit head no thinners Time Seen by Provider: 08/02/24 15:39 Source: patient and EMS Mode of arrival: EMS History of Present Illness HPI Narrative: 74-year-old gentleman history of hypertension, Parkinson's disease, fusion surgery of his RLE that has been giving him problems with no full range of motion was cleaning the plum tree and had a mechanical fall where he landed on ground level and hit the truck and ground with the back of his head. He did not pass out there is no bowel or bladder incontinence no chest pain shortness of breath back pain numbness tingling and he is not on any anticoagulants at this time. His last tetanus was 3-4 years ago. Related Data Home Medications Medication Instructions Recorded Confirmed cholecalciferol (vitamin D3) 50 100 mcg PO DAILY 10/01/23 10/12/23 mcg (2,000 unit) capsule coQ10 (ubiquinol) 100 mg capsule 200 mg PO DAILY 05/09/24 05/09/24 (Qunol Micheal CoQ10) selenium 200 mcg tablet 200 mcg PO DAILY 05/09/24 05/09/24 Previous Rx's Medication Instructions Recorded lisinopril 20 mg tablet 10 mg (1/2 x 20 mg) PO DAILY #90 10/09/23 tabs Disabled Parking Permit See Rx Instructions .Route 02/09/24 .COMPLEX #1 ea Allergies Allergy/AdvReac Type Severity Reaction Status Date / Time No Known Drug Allergies Allergy Verified 10/01/23 09:10 Review of Systems Review of Systems ROS Unobtainable: All systems reviewed & are unremarkable except as noted in HPI and below Patient History Medical History (Updated 08/02/24 @ 16:25 by Kristian Stewart DO) Vision disorder Sarcoidosis (~1987) Abnormal chest x-ray (~1987) Shoulder pain Chicken pox Hypertension Hyperlipidemia Surgical History Status post biopsy Anesthesia Family History Father Heart disease Hypertension Stroke Mother Cancer Diabetes mellitus Dementia Social History marital status: household members: spouse lives independently: Yes pets and animals: Yes (Dog) education level: other occupational status: employed [employer] seatbelt use: always helmet use: Yes water heater temp set < 120 deg: Yes working smoke detector in home: Yes fire extinguisher in home: Yes carbon monox detector in home: Yes Smoking Status: Never smoker alcohol intake: current substance use type: does not use well-balanced diet: daily or most days daily servings fruits/ve-4 caffeine: Yes (1-3 caffeine drinks per week) eating out: 1-3 times/week frequency: 1-2 times per week duration: 15-30 minutes/day Smoking Status: Never smoker alcohol intake frequency: 0-2 drinks per day Exam Narrative Exam Narrative: GENERAL: [74] year old patient appears stated age. Well-developed patient, in mild distress. HEAD: Atraumatic. Normocephalic. EYES: Pupils equal round and reactive. Extraocular motions intact. No scleral icterus. No injection or drainage. ENT: Nose without bleeding, purulent drainage. Throat without erythema, tonsillar hypertrophy or exudate. Airway patent. NECK: Trachea midline. Non tender CARDIOVASCULAR: Regular rate and rhythm without murmurs, gallops, or rubs. RESPIRATORY: Clear to auscultation. Breath sounds equal bilaterally. No wheezes, rales, or rhonchi. GASTROINTESTINAL: Abdomen soft, non-tender, nondistended. EXTREMITIES: No edema or joint tenderness. BACK: Nontender without deformity or crepitance. No flank tenderness. NEURO: AOx3. SKIN: No rash or erythema of visible areas. Occiput deep U shape laceration 1x1cm Initial Vital Signs Initial Vital Signs: Vital Signs Pulse Rate 66 08/02/24 14:59 Pulse Oximetry 100 08/02/24 14:59 Procedures [facility] Procedure Name of Procedure: Staple x 3 placed on Top of occiput after administering 1%lido w/epi 3ml to open wound. Pt tolerated procedure with no complications. Course Orders Ordered: ED Orders 08/02/24 15:15 CT cervical spine wo con Stat 08/02/24 15:16 CT head/brain wo con Stat Discontinued Medications Lidocaine/Epinephrine (Lidocaine 1% W/Epi 20ml) 1 ml SUBCUT NOW ONE Stop: 08/02/24 16:05 Last Admin: 08/02/24 16:00 Dose: 1 ml Documented By: MPO Vital Signs Vital signs: Vital Signs - 8 hr 08/02/24 14:59 08/02/24 15:00 08/02/24 15:00 Temperature 97.1 F L Pulse Rate 66 65 65 Respiratory Rate 20 Blood Pressure 199/87 H Pulse Oximetry 100 100 100 Oxygen Delivery Method Room Air 08/02/24 15:07 08/02/24 15:07 08/02/24 15:34 Temperature Pulse Rate 66 64 Respiratory Rate Blood Pressure 175/74 H Pulse Oximetry 99 99 Oxygen Delivery Method 08/02/24 15:35 08/02/24 15:35 08/02/24 16:00 Temperature Pulse Rate 63 62 Respiratory Rate Blood Pressure 184/71 H Pulse Oximetry 98 98 Oxygen Delivery Method 08/02/24 16:41 Temperature 98 F Pulse Rate 60 Respiratory Rate 20 Blood Pressure 188/72 H Pulse Oximetry 97 Oxygen Delivery Method Room Air CT scans reviewed. Three flavia placed on to top of the occiput. tetanus is up-to-date. Differential diagnosis subarachnoid hemorrhage epidural hemorrhage CVA fracture dislocation. Staple removal in 1 week with PCP office. Return with new or worsening symptoms MDM - Fall Imaging Data CT scan - chest: Radiologist's Impression: [place] [address] CT Scan Report Signed Patient: Matthew Moses MR#: [id number] : 1950 Acct:[id number] Age/Sex: 74 / M Date of Service: 08/02/24 Loc: ED Accession Number: [id number] Procedure: CT head/brain wo con Ordering Provider: Kristian Stewart D.O. PROCEDURE: CT HEAD/BRAIN WO CON INDICATIONS: glf, hit head TECHNIQUE: Noncontrast 4.5 mm thick angled axial sections acquired from the foramen magnum to the vertex, with coronal and sagittal reformats. For radiation dose reduction, the following was used: automated exposure control, adjustment of mA and/or kV according to patient size. COMPARISON: None. FINDINGS: Image quality: Diagnostic. CSF spaces: Basal cisterns are patent. No extra-axial fluid collections. The ventricles are symmetric in size and shape. Brain: No intracranial bleeds or masses. There is cerebral volume loss for age, with resultant ventricular and sulcal prominence. There are periventricular and deep white matter chronic small vessel ischemic changes. There is intracranial internal carotid artery atherosclerosis. Skull and face: Calvarium and visualized facial bones appear intact, without suspicious lesions. Sinuses: Visualized sinuses and mastoids are clear. IMPRESSION: No acute intracranial pathology. Dictated by: Tommy Thomas M.D. on 08/02/2024 at 15:51 Approved by: Tommy Thomas M.D. on 08/02/2024 at 15:[address] [address] [address] Scan Report Signed Patient: Matthew Moses MR#: [id number] : 1950 Acct:[id number] Age/Sex: 74 / M Date of Service: 08/02/24 Loc: ED Accession Number: [id number] Procedure: CT cervical spine wo con Ordering Provider: Kristian Stewart D.O. PROCEDURE: CT CERVICAL SPINE WO CON INDICATIONS: glf, neck pain TECHNIQUE: Noncontrast 3 mm thick sections acquired from the skull base to the T4 level. Sagittal and coronal reformats were then constructed. For radiation dose reduction, the following was used: automated exposure control, adjustment of mA and/or kV according to patient size. COMPARISON: None. FINDINGS: Image quality: Excellent. Bones: No fractures or dislocations. Visualized superior ribs are intact. Soft tissues: Prevertebral soft tissues are normal in thickness. No paravertebral hematomas. No apical pneumothoraces. IMPRESSION: No displaced fracture or traumatic subluxation. ECG Data Interpretation: nsr HR [address]-T wave changes pr 142 qrs 142 qt 406 unchanged from 09/25/22 Discharge Plan Departure Patient Disposition: Home Clinical Impression: Fall Qualifiers: Encounter type: initial encounter Qualified Code(s): W19.XXXA - Unspecified fall, initial encounter Laceration of occipital scalp Qualifiers: Encounter type: initial encounter Qualified Code(s): S01.01XA - Laceration without foreign body of scalp, initial encounter Activity Restrictions/Additional Instructions: return with new or worsening symptoms. Follow up with PCP in 1 week to remove flavia. Prescriptions: No Action lisinopril 20 mg tablet 10 mg PO DAILY Qty: 90 3RF Disabled Parking Permit See Rx Instructions .ROUTE .COMPLEX Qty: 1 0RF Rx Instructions: I find this patient to be medically disabled and qualified for Disabled Parking as indicated, and signed, on the accompanying Disabled Parking Application for Individuals ; cholecalciferol (vitamin D3) 50 mcg (2,000 unit) capsule 100 mcg PO DAILY coQ10 (ubiquinol) [Qunol Micheal CoQ10] 100 mg capsule 200 mg PO DAILY selenium 200 mcg tablet 200 mcg PO DAILY Referrals: Bird Fitzpatrick MD [Primary Care Provider] - Stand Alone Forms: Patient Portal/API/Survey
[2024-08-02] MEDS: LIDOCAINE 1% W/EPI 20ML SUBCUT (16:00)
== END 2024-08-02 16:42 | disposition home or self-care (01) ==
PROVIDERS: Emergency Provider Family Medicine; PCP Family Medicine
DX: S01.01XA Laceration without foreign body of scalp, initial encounter (principal); W18.30XA Fall on same level, unspecified, initial encounter
CPT/HCPCS: 12001; 70450; 72125; 93005; 99281; 99284

== ENCOUNTER → 2024-10-27 08:50 | Outpatient (CLI) | payer MEDICARE, OTHER, SELFPAY ==
[2024-10-27 09:39] LABS: Add Manual Diff / Slide Review NO; Basophils Absolute Auto 0 /uL (0-100); Basophils Percent Auto 0.4 % (0-2); Eosinophils Absolute Auto 200 /uL (0-450); Eosinophils Percent Auto 2.7 % (2-4); Hematocrit 41.2 % (41-53); Hemoglobin 14.1 g/dL (13.5-17.5); Lymphocytes Absolute Auto 2200 /uL (1100-4500); Lymphocytes Percent Auto 28.2 % (25-40); Mean Corpuscular HGB Conc 34.2 % (30-36); Mean Corpuscular Hemoglobin 31.5 PG (26-34); Mean Corpuscular Volume 92.1 fL (80-100); Monocytes Absolute Auto 600 /uL (0-900); Monocytes Percent Auto 7.9 % (3-14); Neutrophils Absolute Auto 4600 /uL (1500-7000); Neutrophils Percent Auto 60.8 % (50-75); Platelet Count 259 X10^3/uL (150-400); Red Blood Cell Count 4.48 X10^6/uL (4.5-5.9); Red Cell Distribution Width 12.7 % (11.6-14.8); White Blood Cell Count 7.6 X10^3/uL (4.5-11.0)
[2024-10-27 09:56] LABS: Alanine Aminotransferase 17 IU/L (<50); Albumin 4.3 g/dL (3.5-5.0); Alkaline Phosphatase 56 U/L (38-126); Aspartate Aminotransferase 21 IU/L (17-59); BUN Creatinine Ratio 29.7 (6-22); Bilirubin Total 1.4 mg/dL (0.2-1.3); Blood Urea Nitrogen 22 mg/dL (9-20); Calcium 9.7 mg/dL (8.4-10.2); Carbon Dioxide 26 mmol/L (22-32); Chloride 106 mmol/L (98-107); Estimated Glomerular Filt Rate > 60 mL/min (>60); Globulin 2.2 g/dL (1.7-4.1); Glucose 99 mg/dL (70-99); HEMOLYSIS < 15 (0-50); Potassium 4.3 mmol/L (3.4-5.1); Sodium 138 mmol/L (137-145); Total Protein 6.5 g/dL (6.3-8.2)
[2024-10-27 10:17] LABS: Vitamin D 25 Hydroxy (D3) 58.6 ng/mL (30.0-100.0)
[2024-10-27 10:26] LABS: Prostate Specific Antigen Scrn 0.621 ng/mL (0.1-4.0)
[2024-10-27 10:29] LABS: TSH w/ Reflex to FT4 2.95 uIU/mL (0.47-4.68)
[2024-10-27 10:49] LABS: Vitamin B12 666 pg/mL (239-931)
== END ==
PROVIDERS: PCP Family Medicine; Referring Provider Family Medicine; Visit Provider Family Medicine
DX: G20.A1 Parkinson's disease without dyskinesia, without mention of fluctuations (principal); Z12.5 Encounter for screening for malignant neoplasm of prostate; D64.9 Anemia, unspecified; N40.0 Benign prostatic hyperplasia without lower urinary tract symptoms; I10 Essential (primary) hypertension; E78.5 Hyperlipidemia, unspecified
CPT/HCPCS: 36415; 80053; 82306; 82607; 84443; 85025; G0103